=== PATIENT | male | born 1995 | race African-American/Black ===

== ENCOUNTER 2020-01-29 07:48 | Emergency (ER) | payer OTHER ==
[~2020-01-29] VITALS: Ht 175.3 cm; Wt 55.0 kg
[2020-01-29 07:51] VITALS: BP 131/100
== END 2020-01-29 09:00 | disposition home or self-care (01) ==
LOC: ER 07:48
DX: M79.601 Pain in right arm (principal); Z98.890 Other specified postprocedural states; W18.30XA Fall on same level, unspecified, initial encounter; Y93.89 Activity, other specified; Y92.018 Other place in single-family (private) house as the place of occurrence of the external cause
CPT/HCPCS: 73060; 73090; 73120; 99284